=== PATIENT | male | born 1990 | race Two or more races ===

== ENCOUNTER 2020-04-03 11:23 | Emergency (ER) | payer OTHER ==
[~2020-04-03] VITALS: Ht 172.7 cm; Wt 68.0 kg
[~2020-04-03 11:23] MED LIST: BACTRIM DS TAB1 EACH PO; PERCOCET 5-3251 EACH PO
[2020-04-03] MEDS ORDERED: PEPCID AC20 MG PO (14:45)
[2020-04-03] MEDS ORDERED: NAPROXEN375 MG PO (14:45)
[2020-04-03] MEDS ORDERED: ORPHENADRINE C100 MG PO (14:45)
== END 2020-04-03 15:00 | disposition home or self-care (01) ==
LOC: ER 11:23
DX: R07.89 Other chest pain (principal); M94.0 Chondrocostal junction syndrome [Tietze]

== ENCOUNTER 2020-04-12 19:21 | Emergency (ER) | payer OTHER ==
[~2020-04-12] VITALS: Ht 172.7 cm; Wt 68.0 kg
[~2020-04-12 19:21] MED LIST changes: +NAPROXEN375 MG PO; +ORPHENADRINE C100 MG PO; +PEPCID AC20 MG PO
== END 2020-04-12 22:54 | disposition home or self-care (01) ==
LOC: ER 19:21
DX: M94.0 Chondrocostal junction syndrome [Tietze] (principal); Z03.818 Encounter for observation for suspected exposure to other biological agents ruled out

== ENCOUNTER 2020-06-14 09:49 | Emergency (ER) | payer OTHER ==
[~2020-06-14] VITALS: Ht 172.7 cm; Wt 68.0 kg
== END 2020-06-14 13:14 | disposition home or self-care (01) ==
LOC: ER 09:49
DX: J06.9 Acute upper respiratory infection, unspecified (principal); B34.9 Viral infection, unspecified; Z20.828 Contact with and (suspected) exposure to other viral communicable diseases

== ENCOUNTER 2021-01-14 13:44 | Emergency (ER) | payer OTHER ==
[~2021-01-14] VITALS: Ht 172.7 cm; Wt 68.0 kg
== END 2021-01-14 16:20 | disposition home or self-care (01) ==
LOC: ER 13:44
DX: R53.81 Other malaise (principal); Z03.818 Encounter for observation for suspected exposure to other biological agents ruled out